=== PATIENT | female | born 2000 | race Caucasian/White ===

== ENCOUNTER 2023-11-20 11:29 | Emergency (ER) | payer SELFPAY ==
[~2023-11-20] VITALS: Ht 157.5 cm; Wt 59.0 kg
[2023-11-20 11:42] VITALS: TEMP 98
[2023-11-20 14:09] VITALS: BP 121/75; O2SAT 100
== END 2023-11-20 14:10 | disposition home or self-care (01) ==
LOC: ER 11:45
DX: F15.10 Other stimulant abuse, uncomplicated (principal)